=== PATIENT | female | born 1935 | race Native Hawaiian/Other Pacific Islander ===

== ENCOUNTER 2017-12-19 07:49 | Outpatient (CLI) | payer OTHER ==
[2017-12-19 08:41] LABS: PLATELET COUNT 139 K/uL (152-353)
[2017-12-19 09:03] LABS: POTASSIUM 3.8 mmol/L (3.6-5.2)
== END 2017-12-19 19:19 | disposition home or self-care (01) ==
LOC: LAB 07:49
PROVIDERS: Internal Medicine Nephrology
DX: D63.1 Anemia in chronic kidney disease (principal); I12.9 Hypertensive chronic kidney disease with stage 1 through stage 4 chronic kidney disease, or unspecified chronic kidney disease; N18.3 Chronic kidney disease, stage 3 (moderate); E78.4 Other hyperlipidemia
CPT/HCPCS: 36415; 80061; 80069; 81000; 82043; 82306; 82550; 82570; 82728; 83540; 83550; 83970; 84155; 84450; 84550; 85027; 86140

== ENCOUNTER 2018-09-12 08:29 | Outpatient (CLI) | payer OTHER ==
[2018-09-12 09:04] LABS: PLATELET COUNT 148 K/uL (152-353)
[2018-09-12 09:44] LABS: POTASSIUM 3.7 mmol/L (3.6-5.2)
== END 2018-09-12 19:23 | disposition home or self-care (01) ==
LOC: LABW 08:29
PROVIDERS: Internal Medicine Nephrology
DX: D63.1 Anemia in chronic kidney disease (principal); N18.3 Chronic kidney disease, stage 3 (moderate); Q61.3 Polycystic kidney, unspecified; R80.9 Proteinuria, unspecified
CPT/HCPCS: 36415; 80069; 81000; 82043; 82570; 82652; 82728; 83540; 83550; 83970; 84166; 84550; 85027; 86140; 87086; 87088

== ENCOUNTER 2018-10-15 08:11 | Outpatient (CLI) | payer OTHER ==
[2018-10-15 08:38] LABS: POTASSIUM 4.1 mmol/L (3.6-5.2)
== END 2018-10-15 20:10 | disposition home or self-care (01) ==
LOC: LABW 08:11
PROVIDERS: Internal Medicine Nephrology
DX: D63.1 Anemia in chronic kidney disease (principal); N20.0 Calculus of kidney; N18.3 Chronic kidney disease, stage 3 (moderate); E78.5 Hyperlipidemia, unspecified; Q61.3 Polycystic kidney, unspecified; R80.9 Proteinuria, unspecified
CPT/HCPCS: 36415; 80069

== ENCOUNTER 2018-10-31 08:20 | Outpatient (CLI) | payer OTHER | END 2018-10-31 20:48 | disposition home or self-care (01) | LOC: LABW 08:20 | DX: N18.3 Chronic kidney disease, stage 3 (moderate) (principal); Q61.3 Polycystic kidney, unspecified | CPT/HCPCS: 36415; 82247; 84075; 84450; 84460 ==

== ENCOUNTER 2019-01-26 08:47 | Outpatient (CLI) | payer OTHER | END 2019-01-26 19:29 | disposition home or self-care (01) | LOC: CT 08:47 | DX: D49.4 Neoplasm of unspecified behavior of bladder (principal) | CPT/HCPCS: 36415; 82565; 84520 ==

== ENCOUNTER 2019-04-03 08:02 | Outpatient (CLI) | payer OTHER ==
[2019-04-03 08:35] LABS: PLATELET COUNT 143 K/uL (152-353)
[2019-04-03 09:18] LABS: POTASSIUM 3.9 mmol/L (3.6-5.2)
== END 2019-04-03 19:33 | disposition home or self-care (01) ==
LOC: LABW 08:02
PROVIDERS: Internal Medicine Nephrology
DX: N18.3 Chronic kidney disease, stage 3 (moderate) (principal); D63.1 Anemia in chronic kidney disease; N20.0 Calculus of kidney; E78.49 Other hyperlipidemia; R80.8 Other proteinuria; Q61.2 Polycystic kidney, adult type
CPT/HCPCS: 36415; 80061; 80069; 81000; 82043; 82570; 82728; 83540; 83550; 84155; 84550; 85027; 86140; 87086; 87088

== ENCOUNTER 2019-09-11 05:47 | Outpatient (CLI) | payer OTHER ==
[2019-09-11 06:34] LABS: PLATELET COUNT 135 K/uL (152-353)
[2019-09-11 06:46] LABS: POTASSIUM 3.8 mmol/L (3.6-5.2)
== END 2019-09-11 21:51 | disposition home or self-care (01) ==
LOC: LABW 05:47
PROVIDERS: Internal Medicine Nephrology
DX: Q61.2 Polycystic kidney, adult type (principal); N18.3 Chronic kidney disease, stage 3 (moderate); R79.82 Elevated C-reactive protein (CRP); E78.49 Other hyperlipidemia; I12.9 Hypertensive chronic kidney disease with stage 1 through stage 4 chronic kidney disease, or unspecified chronic kidney disease; R80.8 Other proteinuria; N39.0 Urinary tract infection, site not specified; D63.1 Anemia in chronic kidney disease
CPT/HCPCS: 36415; 80061; 80069; 81000; 82043; 82570; 82728; 83540; 83550; 84155; 84550; 85027; 86140

== ENCOUNTER 2020-01-29 07:45 | Outpatient (CLI) | payer OTHER ==
[2020-01-29 08:22] LABS: PLATELET COUNT 135 K/uL (152-353)
[2020-01-29 09:05] LABS: POTASSIUM 3.8 mmol/L (3.6-5.2)
== END 2020-01-29 20:11 | disposition home or self-care (01) ==
LOC: LAB 07:45
PROVIDERS: Internal Medicine Nephrology
DX: I12.9 Hypertensive chronic kidney disease with stage 1 through stage 4 chronic kidney disease, or unspecified chronic kidney disease (principal); E78.49 Other hyperlipidemia; E87.79 Other fluid overload; N18.3 Chronic kidney disease, stage 3 (moderate); Q61.2 Polycystic kidney, adult type; R79.82 Elevated C-reactive protein (CRP); R80.8 Other proteinuria; N18.9 Chronic kidney disease, unspecified
CPT/HCPCS: 36415; 80048; 80061; 80076; 81000; 82043; 82306; 82310; 82570; 82728; 83540; 83550; 83970; 84100; 84155; 85027; 86140

== ENCOUNTER 2020-06-24 07:18 | Outpatient (CLI) | payer OTHER ==
[2020-06-24 09:09] LABS: POTASSIUM 3.6 mmol/L (3.6-5.2)
[2020-06-24 09:51] LABS: PLATELET COUNT 139 K/uL (152-353)
== END 2020-06-24 19:28 | disposition home or self-care (01) ==
LOC: LAB 07:18
PROVIDERS: Internal Medicine Nephrology
DX: E78.49 Other hyperlipidemia (principal); N18.3 Chronic kidney disease, stage 3 (moderate); N39.0 Urinary tract infection, site not specified; Q61.2 Polycystic kidney, adult type; R80.8 Other proteinuria; D64.9 Anemia, unspecified; I12.9 Hypertensive chronic kidney disease with stage 1 through stage 4 chronic kidney disease, or unspecified chronic kidney disease
CPT/HCPCS: 36415; 80061; 80069; 81000; 82043; 82570; 82728; 83540; 83550; 84155; 84550; 85027; 86140

== ENCOUNTER 2021-02-19 07:10 | Outpatient (CLI) | payer OTHER ==
[2021-02-19 07:34] LABS: PLATELET COUNT 138 K/uL (152-353)
[2021-02-19 08:01] LABS: POTASSIUM 3.7 mmol/L (3.6-5.2)
== END 2021-02-19 20:22 | disposition home or self-care (01) ==
LOC: LABW 07:10
PROVIDERS: ATTEND Internal Medicine Nephrology
DX: E87.79 Other fluid overload (principal); E66.9 Obesity, unspecified; N18.30 Chronic kidney disease, stage 3 unspecified; Q61.2 Polycystic kidney, adult type; E79.0 Hyperuricemia without signs of inflammatory arthritis and tophaceous disease; R80.9 Proteinuria, unspecified; I12.9 Hypertensive chronic kidney disease with stage 1 through stage 4 chronic kidney disease, or unspecified chronic kidney disease
CPT/HCPCS: 36415; 80048; 80061; 80076; 81000; 82043; 82570; 82728; 83540; 83550; 84100; 84155; 84550; 85027; 86140

== ENCOUNTER 2021-09-01 06:35 | Outpatient (CLI) | payer OTHER ==
[2021-09-01 08:43] LABS: POTASSIUM 3.8 mmol/L (3.6-5.2)
== END 2021-09-01 19:52 | disposition home or self-care (01) ==
LOC: LABW 06:35
PROVIDERS: ATTEND Internal Medicine Nephrology
DX: I12.9 Hypertensive chronic kidney disease with stage 1 through stage 4 chronic kidney disease, or unspecified chronic kidney disease (principal); N18.30 Chronic kidney disease, stage 3 unspecified; Q61.2 Polycystic kidney, adult type; E79.0 Hyperuricemia without signs of inflammatory arthritis and tophaceous disease; R80.8 Other proteinuria
CPT/HCPCS: 36415; 80048; 80061; 80076; 81000; 82043; 82306; 82310; 82570; 83970; 84100; 84155; 84550; 86140

== ENCOUNTER 2022-04-20 07:00 | Outpatient (CLI) | payer OTHER ==
[2022-04-20 08:33] LABS: PLATELET COUNT 142 K/uL (152-353)
== END 2022-04-20 19:15 | disposition home or self-care (01) ==
LOC: LABW 07:00
PROVIDERS: ATTEND Internal Medicine Nephrology
DX: E78.49 Other hyperlipidemia (principal); E87.79 Other fluid overload; N18.30 Chronic kidney disease, stage 3 unspecified; N25.81 Secondary hyperparathyroidism of renal origin; Q61.2 Polycystic kidney, adult type; R79.82 Elevated C-reactive protein (CRP); I12.9 Hypertensive chronic kidney disease with stage 1 through stage 4 chronic kidney disease, or unspecified chronic kidney disease; R79.89 Other specified abnormal findings of blood chemistry
CPT/HCPCS: 36415; 80061; 80069; 81000; 82043; 82550; 82570; 82728; 83540; 84156; 84450; 84550; 85027; 86140

== ENCOUNTER 2022-12-23 07:37 | Outpatient (CLI) | payer OTHER ==
[2022-12-23 08:29] LABS: PLATELET COUNT 201 K/uL (152-353)
[2022-12-23 08:45] LABS: POTASSIUM 3.7 mmol/L (3.6-5.2)
== END 2022-12-23 19:01 | disposition home or self-care (01) ==
LOC: LABW 07:37
PROVIDERS: ATTEND Internal Medicine Nephrology
DX: D41.4 Neoplasm of uncertain behavior of bladder (principal); E78.49 Other hyperlipidemia; E83.59 Other disorders of calcium metabolism; E87.70 Fluid overload, unspecified; E66.9 Obesity, unspecified; I65.29 Occlusion and stenosis of unspecified carotid artery; K21.9 Gastro-esophageal reflux disease without esophagitis; N18.30 Chronic kidney disease, stage 3 unspecified; N25.81 Secondary hyperparathyroidism of renal origin; N60.09 Solitary cyst of unspecified breast; N83.209 Unspecified ovarian cyst, unspecified side; L93.0 Discoid lupus erythematosus; M19.90 Unspecified osteoarthritis, unspecified site; Q61.2 Polycystic kidney, adult type; R19.7 Diarrhea, unspecified; E79.0 Hyperuricemia without signs of inflammatory arthritis and tophaceous disease; I12.9 Hypertensive chronic kidney disease with stage 1 through stage 4 chronic kidney disease, or unspecified chronic kidney disease; R82.998 Other abnormal findings in urine
CPT/HCPCS: 36415; 80061; 80069; 81000; 82043; 82306; 82550; 82570; 83550; 83970; 84156; 84550; 85027; 85652; 86140; 87077; 87086; 87088; 87186

== ENCOUNTER 2023-01-29 12:57 | Outpatient (CLI) | payer OTHER | END 2023-01-29 19:28 | disposition home or self-care (01) | LOC: CT 12:57 | PROVIDERS: ATTEND Internal Medicine | DX: R10.9 Unspecified abdominal pain (principal) ==

== ENCOUNTER 2023-02-22 09:28 | Outpatient (CLI) | payer OTHER ==
[2023-02-22 10:12] LABS: PLATELET COUNT 141 K/uL (152-353)
[2023-02-22 10:37] LABS: POTASSIUM 4.1 mmol/L (3.6-5.2)
== END 2023-02-22 19:41 | disposition home or self-care (01) ==
LOC: LABW 09:28
PROVIDERS: ATTEND Internal Medicine Nephrology
DX: E87.70 Fluid overload, unspecified (principal); N18.9 Chronic kidney disease, unspecified; N39.0 Urinary tract infection, site not specified; Q61.2 Polycystic kidney, adult type; R80.8 Other proteinuria; R79.82 Elevated C-reactive protein (CRP); I12.9 Hypertensive chronic kidney disease with stage 1 through stage 4 chronic kidney disease, or unspecified chronic kidney disease
CPT/HCPCS: 36415; 80061; 80069; 81002; 82043; 82570; 82728; 83540; 83550; 84156; 84550; 85027; 86140; 87086; 87088